=== PATIENT | male | born 1980 | race Caucasian/White ===

== ENCOUNTER 2021-08-23 18:48 | Emergency (ER) | payer OTHER ==
[2021-08-23] MEDS ORDERED: KEFLEX250 MG PO (22:46)
== END 2021-08-23 23:00 | disposition home or self-care (01) ==
LOC: FER 18:48
DX: S62.601A Fracture of unspecified phalanx of left index finger, initial encounter for closed fracture (principal); F17.210 Nicotine dependence, cigarettes, uncomplicated; Z88.0 Allergy status to penicillin; X58.XXXA Exposure to other specified factors, initial encounter; Y92.89 Other specified places as the place of occurrence of the external cause; Y99.0 Civilian activity done for income or pay
CPT/HCPCS: 73130